=== PATIENT | male | born 2000 | race Caucasian/White ===

== ENCOUNTER 2019-04-02 11:44 | Emergency (ER) | payer OTHER ==
[2019-04-02] MEDS ORDERED: Albuterol 2.5 MG/3 ML NEB.SOL* (0.083%) INH ONE (14:42)
--- NOTE | 2019-04-02 14:43 | ED ---
Respiratory - HPI Summary HPI Summary: Patient is a 18-year-old male who presents emergency department for worsening productive cough and shortness of breath times one week. Patient was seen at [facility] today and was noted to have a low pulse ox with shortness of breath and is referred to the ER for further evaluation. Patient denies past medical history. Immunizations are up-to-date. Denies associated symptoms of fever, vomiting, abdominal pain, diarrhea, rash, sick contacts. Symptoms are mild to moderate in severity. Physical activity makes symptoms worse. Rest makes symptoms better. - History of Current Complaint Chief Complaint: EDUpperRespComplaint Stated Complaint: COUGH Time Seen by Provider: 04/02/19 14:37 Hx Obtained From: Patient Pain Intensity: 2 - Allergy/Home Medications Allergies/Adverse Reactions: Allergies Allergy/AdvReac Type Severity Reaction Status Date / Time albuterol Allergy See Comment Verified 04/02/19 11:52 dexamethasone Allergy Flushing Verified 04/02/19 11:52 Home Medications: Home Medications Multivitamins/Minerals TAB* [Theragran/minerals TAB*] 1 tab PO DAILY 04/02/19 [ History Confirmed 04/02/19] PMH/Surg Hx/FS Hx/Imm Hx Previously Healthy: Yes Infectious Disease History: No Infectious Disease History: Denies: Traveled Outside the [place] in Last 30 Days - Family History Known Family History: Positive: Non-Contributory - Social History Occupation: Student Lives: Dormitory/Roommates Alcohol Use: Occasionally Review of Systems Constitutional: Negative Negative: Fever Eyes: Negative ENT: Negative Cardiovascular: Negative Positive: Shortness Of Breath, Cough Gastrointestinal: Negative Negative: Abdominal Pain, Vomiting, Diarrhea Skin: Negative Negative: Rash Neurological: Negative All Other Systems Reviewed And Are Negative: Yes Physical Exam Triage Information Reviewed: Yes Vital Signs On Initial Exam: Initial Vitals Temp Pulse Resp BP Pulse Ox 98.9 F 92 20 141/87 96 04/02/19 11:48 04/02/19 11:48 04/02/19 11:48 04/02/19 11:48 04/02/19 11:48 Vital Signs Reviewed: Yes Appearance: Positive: Well-Appearing - Pt. sitting on bed in NAD> Friend present. Breating easily on RA. Skin: Positive: Warm, Dry Head/Face: Positive: Normal Head/Face Inspection Eyes: Positive: Normal, EOMI ENT: Positive: Pharynx normal, TMs normal Neck: Positive: Supple, No Lymphadenopathy. Negative: Nuchal Rigidity Respiratory/Lung Sounds: Positive: Other - Diminished breath sounds throughout. No accessory muscle use.. Negative: Stridor Cardiovascular: Positive: Normal, RRR Musculoskeletal: Positive: Normal, Strength/ROM Intact Neurological: Positive: Normal, CN Intact II-III Psychiatric: Positive: Affect/Mood Appropriate Procedures - Sedation Patient Received Moderate/Deep Sedation with Procedure: No Diagnostics - Vital Signs Vital Signs Temp Pulse Resp BP Pulse Ox 04/02/19 11:48 98.9 F 92 20 141/87 96 - Laboratory Result Diagrams: 04/02/19 15:48 04/02/19 15:48 Lab Statement: Any lab studies that have been ordered have been reviewed, and results considered in the medical decision making process. Disposition - Course Course Of Treatment: Pt. presenting with cough and SOB. O2 saturation 96% on RA which is normal. Pt. nontoxic appearing. XR per radiology: IMPRESSION: BIBASILAR INFILTRATES AND SMALL RIGHT PLEURAL EFFUSION. CXR discussed with Dr. Cuevas who recommends CTA to r/o PE and for further eval of effusion and infiltrates. IV fluids started. Pt. given a dose of IV rocephin and zithromax. Labs and cultures obtained. Pt. given albuterol treatment. CTA per radiology: IMPRESSION: 1. Bibasilar airspace consolidation and tight atelectasis/ collapse of the right middle. lobe. These findings are suspicious for pneumonia /aspiration pneumonitis. Imaging to. radiographic resolution is recommended in the context of right middle lobe collapse to. exclude the possibility of an endobronchial lesion. 2. Right perihilar and subcarinal lymph nodes could be reactive. 3. No pulmonary embolism is identified. Labs are completely unremarkable other than minimally elevated CRP. Discussed with Dr. Cuevas and will plan on dc home given labs and VS. O2 has stayed over 95% on RA. Lungs sound better after breathing treatment. Discussed with pt. Will keep on zithromax to cover atypicals. HFA rx. Pt. to f.u with [facility] in 1-2 days for recheck. To increase fluids and rest. Tylenol o rmotrin for pain and fever as directed. To return to ER if sxs change or worsen. Pt. understands and agrees with plan. - Differential Dx - Cardiopulmonary Differential Diagnoses - Cardiopulmonary: Asthma, Bronchitis, Lower Resp Infection, Pneumothorax, Pulmonary Edema, Pulmonary Embolism - Diagnoses Provider Diagnoses: Pneumonia Discharge ED - Sign-Out/Discharge Documenting (check all that apply): Patient Departure - Discharge Plan Condition: Improved Disposition: HOME Prescriptions: Albuterol HFA INHALER* [Ventolin HFA Inhaler*] 2 puff INH Q4H PRN #1 mdi PRN Reason: Shortness Of Breath Azithromycin 250 mg PO DAILY #5 tablet Patient Education Materials: Bacterial Pneumonia (ED) Referrals: [facility] - Mychal RUBY [Primary Care Provider] - Additional Instructions: Schedule a follow up appointment with PCP in 1-2 days for recheck Medication as directed Increase fluids and rest Tylenol or Motrin for pain and fever as directed Return to ER if symptoms change or worsen - Billing Disposition and Condition Condition: IMPROVED Disposition: Home
[2019-04-02] MEDS ORDERED: NS 0.9% 1000 ML** 1,000 ML IV ONE ×2 (15:10→17:28)
[2019-04-02] MEDS ORDERED: Azithromycin 500 mg/250 ml NS 500 MG/250 ML BAG IVPB ONE (15:30)
[2019-04-02] MEDS ORDERED: cefTRIAXone(*) 1 GM in NS 0.9% 50 ML* 50 ML IVPB ONE (15:30)
[2019-04-02 16:00] LABS: ABS Eosinophils 0.1 10^3/ul (0-0.6); ABS Lymphocytes 1.6 10^3/ul (1.0-4.8); ABS Monocytes 0.5 10^3/ul (0-0.8); ABS Neutrophils 5.1 10^3/ul (1.5-7.7); Eosinophil % 1.8 %; Hematocrit 47 % (42-52); Hemoglobin 16.6 g/dL (14.0-18.0); Mean Corpuscular HGB Conc 36 g/dL (31-36); Mean Corpuscular Hemoglobin 31 pg (27-31); Mean Corpuscular Volume 87 fL (80-94); Mean Platelet Volume 7.7 fL (7.4-10.4); Nucleated Red Blood Cells % 0.1; Platelet Count 295 10^3/uL (150-450); Red Blood Count 5.33 10^6 /uL (4.18-5.48); Red Cell Distribution Width 13 % (10-15); White Blood Count 7.3 10^3/uL (3.5-10.8)
[2019-04-02 16:29] LABS: Albumin 4.7 g/dL (3.2-5.2); Albumin/Globulin Ratio 1.5 (1-3); BUN/Creatinine Ratio 14.4 (8-20); C Reactive Protein 13.42 mg/L (<8.01); Calcium 10.1 mg/dL (8.6-10.3); EGFR African American 119.4 (>60); EGFR Non-African American 98.7 (>60); Globulin 3.1 g/dL (2-4); Potassium 3.8 mmol/L (3.5-5.0); Total Bilirubin 0.7 mg/dL (0.2-1.0); Total Protein 7.8 g/dL (6.4-8.9)
[2019-04-02] MEDS ORDERED: Iohexol 350* (CONTRAST) 500 ML MDV IV ONE (16:35)
[2019-04-02] MEDS ORDERED: Acetaminophen TAB* 325 MG PO ONE (17:43)
[2019-04-02 18:56] VITALS: BP 136/72
== END 2019-04-02 18:53 | disposition home or self-care (01) ==
LOC: ED 11:44
DX: J18.9 Pneumonia, unspecified organism (principal); Z88.8 Allergy status to other drugs, medicaments and biological substances
CPT/HCPCS: 36415; 71046; 71275; 80053; 85025; 86140; 87040; 87070; 87205; 96361; 96374; 99283; A9270-GY; J0456; J0696; Q9967

== ENCOUNTER 2019-04-07 14:52 | Emergency (ER) | payer OTHER ==
--- NOTE | 2019-04-07 15:38 | ED ---
Respiratory - HPI Summary HPI Summary: This patient is a 18 year old M presenting to [facility] accompanied by mother and father with a chief complaint of trouble breathing. Pt was at [facility] for dx PNA on right side with pleural effusion, Z-pack just finished, [facility] concerned that pt was not feeling back to normal including trouble breathing. At [facility] patient had chest x-ray but XR not sent over to ED. patient states that he feels better, however he does have some dyspnea on exertion. His cough has improved and he is no longer having a productive cough. Review of records, patient had a chest x-ray and CT of the chest, that showed a right middle lobe atelectasis and bibasilar infiltrates. Pt reports Hx bronchiolitis. Fmhx denied. Denies fevers. - History of Current Complaint Chief Complaint: EDShortnessOfBreath Stated Complaint: LUNG ISSUES PER PT Time Seen by Provider: 04/07/19 15:01 Hx Obtained From: Patient Onset/Duration: Lasting Days, Still Present Pain Intensity: 2 Aggravating Factor(s): Nothing Alleviating Factor(s): Nothing Associated Signs and Symptoms: Negative - denies fevers - Allergy/Home Medications Allergies/Adverse Reactions: Allergies Allergy/AdvReac Type Severity Reaction Status Date / Time dexamethasone Allergy Flushing Verified 04/07/19 14:58 PMH/Surg Hx/FS Hx/Imm Hx Endocrine/Hematology History: Denies: Hx Diabetes Cardiovascular History: Denies: Hx Hypertension Respiratory History: Denies: Hx Asthma, Hx Chronic Obstructive Pulmonary Disease (COPD) History: Denies: Hx Renal Disease - Surgical History Surgery Procedure, Year, and Place: none reported Infectious Disease History: No Infectious Disease History: Denies: Traveled Outside the [place] in Last 30 Days - Family History Known Family History: Positive: None - according to parents - Social History Alcohol Use: None Hx Substance Use: No Substance Use Type: Reports: None Hx Tobacco Use: No Smoking Status (MU): Never Smoked Tobacco Review of Systems Positive: Fatigue. Negative: Fever Positive: Shortness Of Breath, Cough, Other - trouble breathing, PNA, pleural effusion All Other Systems Reviewed And Are Negative: Yes Physical Exam - Summary Physical Exam Summary: Constitutional: Well-developed, Well-nourished, Alert. (-) Distressed Skin: Warm, Dry HENT: Normocephalic; Atraumatic Eyes: Conjunctiva normal Neck: Musculoskeletal ROM normal neck. (-) JVD, (-) Stridor, (-) Nuchal rigidity Cardio: Rhythm regular, rate normal, Heart sounds normal; Intact distal pulses; Radial pulses are 2+ and symmetric. (-) Murmur Pulmonary/Chest wall: Decreased breath sounds of the right middle and lower lobe , (-) Wheezes, (-) Rales Abd: Soft, (-) tenderness, (-) Distension, (-) Guarding, (-) Rebound Musculoskeletal: (-) Edema Lymph: (-) Cervical adenopathy Neuro: Alert, Oriented x3 Psych: Mood and affect Normal Triage Information Reviewed: Yes Vital Signs On Initial Exam: Initial Vitals Temp Pulse Resp BP Pulse Ox 99.4 F 94 16 143/80 97 04/07/19 14:55 04/07/19 14:55 04/07/19 14:55 04/07/19 14:55 04/07/19 14:55 Vital Signs Reviewed: Yes Procedures - Sedation Patient Received Moderate/Deep Sedation with Procedure: No Diagnostics - Vital Signs Vital Signs Temp Pulse Resp BP Pulse Ox 04/07/19 14:55 99.4 F 94 16 143/80 97 - Laboratory Lab Statement: Any lab studies that have been ordered have been reviewed, and results considered in the medical decision making process. - Radiology Chest X-Ray Radiology Interpretation Completed By: Radiologist Summary of Radiographic Findings: Per radiologist,. PERSISTENT CONSOLIDATION OF THE RIGHT LOWER LUNG. ED physician has reviewed this imaging report. Re-Evaluation - Re-Evaluation First Eval Re-Evaluation Time: 17:45 Comment: Patient updated on plan for discharge. 96% on RA, EWOB Disposition - Course Course Of Treatment: 18-year-old male with recent pneumonia of the right middle and bilateral lower lobes presents with continued symptoms. - Easy work of breathing on room air, 96%, down to 93% when ambulating. The patient that he feels improved however [facility] about his [facility]. Repeat chest x-ray here similar to prior. Patient's white count was 6 at [place]. Afebrile and well-appearing. Discussed with parents that he could start Levaquin given that he has had minimal resolution on CXR however I suspect that since his symptoms are improving his CXR will improve. Parents opted for continued abx so will send on levaquin. Will need repeat imaging to ensure resolution of RML atlectasis. - Diagnoses Provider Diagnoses: Pneumonia Discharge ED - Sign-Out/Discharge Documenting (check all that apply): Patient Departure - discharge - Discharge Plan Condition: Stable Disposition: HOME Prescriptions: Levofloxacin TAB* [Levaquin TAB*] 750 mg PO DAILY 5 Days #5 tab Patient Education Materials: Pneumonia (ED) [facility] - [facility] RUBY [Primary Care Provider] - 3 Days Additional Instructions: You were seen in the emergency department for pneumonia. Your chest x-ray looks similar to prior. Please take Levaquin for 5 days. Please follow-up with Mychal on Tuesday or Tuesday, you will need a repeat Xray. Please return for worsening symptoms, trouble breathing, fevers or if you're concerned. It was a pleasure taking care of you today. - Billing Disposition and Condition Condition: STABLE Disposition: Home - Attestation Statements Document Initiated by Scribe: Yes Documenting Scribe: Swetha Castillo Provider For Whom Celestina is Documenting (Include Credential): Dr. June Fulton MD Scribe Attestation: I, Swetha Castillo, scribed for Dr. June Fulton MD on 04/07/19 at 1709. Scribe Documentation Reviewed: Yes Provider Attestation: The documentation as recorded by the scribeSwetha accurately reflects the service I personally performed and the decisions made by me, Dr. June Fulton MD Status of Scribe Document: Viewed
[2019-04-07] MEDS ORDERED: Levofloxacin TAB* 250 MG PO ONE (16:47)
[2019-04-07 17:24] VITALS: BP 124/82
== END 2019-04-07 17:23 | disposition home or self-care (01) ==
LOC: ED 14:52
DX: J18.9 Pneumonia, unspecified organism (principal); Z88.8 Allergy status to other drugs, medicaments and biological substances
CPT/HCPCS: 71046; 99282